=== PATIENT | female | born 1955 | race Caucasian/White ===

== ENCOUNTER 2023-03-17 05:30 | Day surgery (SDC) | payer OTHER | END 2023-03-17 14:00 | disposition home or self-care (01) | LOC: AMB-ENDOS 05:30 | PROVIDERS: ATTEND Colon & Rectal Surgery | DX: D12.3 Benign neoplasm of transverse colon (principal); K59.00 Constipation, unspecified; Z20.822 Contact with and (suspected) exposure to COVID-19 ==